=== PATIENT | female | born 2000 ===

== ENCOUNTER 2023-09-05 13:25 | Emergency (ER) | payer OTHER ==
[~2023-09-05] VITALS: Ht 157.5 cm; Wt 74.1 kg
[2023-09-05 14:02] VITALS: BP 119/70; PULSE 86; RESP 14; TEMP 98.5
[2023-09-05] MEDS: KETOROLAC TROMETHAMINE 60 MG/2 ML VIAL IM ONE (14:35)
[2023-09-05] MEDS ORDERED: IBUP-1492 PO (14:51)
== END 2023-09-05 15:18 | disposition home or self-care (01) ==
LOC: EMS 13:25
DX: N83.202 Unspecified ovarian cyst, left side (principal)
CPT/HCPCS: 99285; 76856; 96372; J1885